=== PATIENT | male | born 1950 | race Caucasian/White ===

== ENCOUNTER 2019-09-25 20:49 | Emergency (ER) | payer OTHER ==
[~2019-09-25] VITALS: Ht 175.3 cm; Wt 131.4 kg
[2019-09-25 20:56] VITALS: Ht 175.3 cm; Wt 131.4 kg
[2019-09-25] MEDS ORDERED: VIBRAMYCIN 100100 MG PO (22:21)
[2019-09-25 23:06] VITALS: BP 148/79
== END 2019-09-25 23:08 | disposition home or self-care (01) ==
LOC: D.ER 20:49
DX: L03.031 Cellulitis of right toe (principal); S90.421A Blister (nonthermal), right great toe, initial encounter; X58.XXXA Exposure to other specified factors, initial encounter; I10 Essential (primary) hypertension; E11.9 Type 2 diabetes mellitus without complications